=== PATIENT | female | born 1970 | race Caucasian/White ===

== ENCOUNTER → 2017-06-13 | Outpatient (CLI) | payer OTHER ==
[~2017-06-13] MED LIST: ALBU90OI; AZIT250 PO; GLIM4 PO; LISI10 PO; METF500 PO; NAPR550 PO; OXYACE5T PO; PRAV10 PO; PROM25 PO; RXNAPNA550 PO; RXONDA4ODT MM; RXOXYACE PO; TAMS.4ER PO
[2017-06-13 13:34] LABS: Influenza A Negative (NEGATIVE); Influenza B Negative (NEGATIVE)
== END | disposition home or self-care (01) ==
LOC: LAB 12:41
PROVIDERS: Family Medicine
DX: R06.02 Shortness of breath (principal); R50.9 Fever, unspecified
CPT/HCPCS: 87804

== ENCOUNTER → 2018-03-23 | Outpatient (CLI) | payer OTHER | LOC: LAB 15:35 → LAB SHORT 15:35 | DX: N39.0 Urinary tract infection, site not specified (principal); R30.0 Dysuria | CPT/HCPCS: 87086 ==

== ENCOUNTER → 2020-02-22 | Outpatient (CLI) | payer OTHER | END | disposition home or self-care (01) | LOC: LAB 15:42 → LAB SHORT 15:42 | DX: R30.0 Dysuria (principal) | CPT/HCPCS: 87077; 87086; 87186 ==

== ENCOUNTER → 2020-07-03 | Outpatient (CLI) | payer OTHER ==
[~2020-07-03] MED LIST changes: +ASPI81CH PO; +CLON.5 PO; +GLIP2.5ER PO; +INSULANI; +LISI5 PO; +OMEP20ER PO; +TRULICITY0.75 MG/01
== END | disposition home or self-care (01) ==
LOC: PLD 15:07 → LAB SHORT 15:07
DX: L72.11 Pilar cyst (principal)
CPT/HCPCS: 88304

== ENCOUNTER 2020-09-17 09:48 | Day surgery (SDC) | payer OTHER ==
[~2020-09-17] VITALS: Ht 160 cm; Wt 103.9 kg
[~2020-09-17 09:48] MED LIST changes: -ASPI81CH PO; -CLON.5 PO; -GLIP2.5ER PO; -INSULANI; -LISI5 PO; -OMEP20ER PO; -TRULICITY0.75 MG/01
[2020-09-17] MEDS ORDERED: METF500 PO (10:30)
[2020-09-17] MEDS ORDERED: INSULANI (10:30)
[2020-09-17] MEDS ORDERED: GLIP2.5ER PO (10:30)
[2020-09-17] MEDS ORDERED: ASPI81CH PO (10:31)
[2020-09-17] MEDS ORDERED: OMEP20ER PO (10:31)
[2020-09-17] MEDS ORDERED: LISI5 PO (10:31)
[2020-09-17] MEDS ORDERED: CLON.5 PO (10:32)
[2020-09-17] MEDS ORDERED: TRULICITY0.75 MG/01 (10:33)
== END 2020-09-17 13:07 | disposition home or self-care (01) ==
LOC: ORSCSDS 09:48
PROVIDERS: Orthopaedic Surgery
PROC: 0JBK0ZZ Excision of Left Hand Subcutaneous Tissue and Fascia, Open Approach (ICD-10-PCS; principal; 2020-09-17 11:30)
DX: M67.442 Ganglion, left hand (principal); I10 Essential (primary) hypertension; E11.9 Type 2 diabetes mellitus without complications; J45.909 Unspecified asthma, uncomplicated; E66.01 Morbid (severe) obesity due to excess calories; Z68.41 Body mass index [BMI] 40.0-44.9, adult; Z79.4 Long term (current) use of insulin; Z79.899 Other long term (current) drug therapy; K21.9 Gastro-esophageal reflux disease without esophagitis
CPT/HCPCS: 82947; 87071; 87075; 87077; 87147; 87186; 87205; 88305; A9270; J0690; J1100; J1885; J2250; J2405; J2704; J3010; J7120

== ENCOUNTER → 2022-11-18 | Outpatient (CLI) | payer OTHER ==
[~2022-11-18] MED LIST changes: +ASPI81CH PO; +CLON.5 PO; +GLIP2.5ER PO; +INSULANI; +LISI5 PO; +OMEP20ER PO; +TRULICITY0.75 MG/01
== END ==
LOC: LAB SHORT 09:58 → LAB 09:58 → PLD 09:58
DX: L72.11 Pilar cyst (principal)
CPT/HCPCS: 88304

== ENCOUNTER → 2024-01-02 | Outpatient (CLI) | payer OTHER | END | disposition home or self-care (01) | LOC: LAB SHORT 15:15 → LAB 15:15 | DX: N39.0 Urinary tract infection, site not specified (principal) | CPT/HCPCS: 87077; 87086; 87186 ==